=== PATIENT | female | born 2005 | race Caucasian/White ===

== ENCOUNTER → 2025-06-10 | Outpatient (CLI) | payer OTHER, SELFPAY | END | disposition home or self-care (01) | LOC: LABSPEC 15:18 | DX: J02.9 Acute pharyngitis, unspecified (principal) | CPT/HCPCS: 87070; 87077 ==

== ENCOUNTER → 2025-06-30 | Outpatient (CLI) | payer OTHER, SELFPAY | END | disposition home or self-care (01) | DX: J02.9 Acute pharyngitis, unspecified (principal) | CPT/HCPCS: 87070 ==